=== PATIENT | male | born 1950 | race Two or more races ===

== ENCOUNTER 2016-10-16 09:59 | Emergency (ER) | payer OTHER, MEDICAID ==
[~2016-10-16] VITALS: Ht 172.7 cm; Wt 113.9 kg
[~2016-10-16 09:59] MED LIST: CLOP75TA28; COLCRYS 0.6 MG; DOXA4TAB40; ENAL-3; FURO40TA4; GEMF600T3; INSUINJ37; NITR0.2D12; OLOPATADINE; PIOG30TA7; PRAVASTATIN; TRAV0.00
[2016-10-16 10:53] LABS: Basophils # (auto) 0 uL; Basophils % (auto) 0.5 % (0.0-2.0); Eosinophils # (auto) 0.2 uL; Eosinophils % (auto) 5.7 % (0.0-7.0); Hematocrit 32.6 % (41.0-53.0); Hemoglobin 10.4 g/dL (13.5-17.5); Lymphocytes # (auto) 0.8 uL; Lymphocytes % (auto) 29.2 % (10.0-50.0); Mean Corpuscular Hemoglobin 31.1 pg (28.0-32.0); Mean Corpuscular Volume 97.1 fL (80.0-100.0); Mean Platelet Volume 8.2 fL (7.4-10.4); Monocytes # (auto) 0.3 uL; Monocytes % (auto) 10.9 % (0.0-12.0); Neutrophils # (auto) 1.6 uL; Neutrophils % (auto) 53.7 % (37.0-80.0); Platelet Count (auto) 170 10^3/uL (140-450); Red Cell Distribution Width 14.9 % (11.6-16.0); White Blood Cell 2.9 10^3/uL (4.4-10.8)
[2016-10-16 11:17] LABS: Albumin 3.4 g/dL (3.4-5.0); BUN/Creatinine Ratio 7.3; Bilirubin, Total 0.3 mg/dL (0.2-1.0); Calcium 8.3 mg/dL (8.5-10.1); Total Protein 7.5 g/dL (6.4-8.2)
[2016-10-16 19:30] VITALS: BP 103/65
== END 2016-10-16 20:35 | disposition left against medical advice (07) ==
LOC: ER 10:05
DX: T82.9XXA Unspecified complication of cardiac and vascular prosthetic device, implant and graft, initial encounter (principal); S40.022A Contusion of left upper arm, initial encounter; E11.22 Type 2 diabetes mellitus with diabetic chronic kidney disease; I12.0 Hypertensive chronic kidney disease with stage 5 chronic kidney disease or end stage renal disease; N18.6 End stage renal disease; Z99.2 Dependence on renal dialysis; E78.5 Hyperlipidemia, unspecified; Z79.899 Other long term (current) drug therapy; X58.XXXA Exposure to other specified factors, initial encounter; Y93.89 Activity, other specified; Y99.8 Other external cause status; Y92.89 Other specified places as the place of occurrence of the external cause
CPT/HCPCS: 36415; 80053; 85025

== ENCOUNTER → 2016-10-29 | Outpatient (CLI) | payer OTHER, MEDICAID | END | disposition home or self-care (01) | LOC: HDHVI->DVH 08:06 | PROVIDERS: ATTEND Internal Medicine Cardiovascular Disease | DX: I51.7 Cardiomegaly (principal); E11.9 Type 2 diabetes mellitus without complications | CPT/HCPCS: 93306 ==

== ENCOUNTER → 2016-10-30 | Outpatient (CLI) | payer OTHER, MEDICAID ==
[~2016-10-30] VITALS: Ht 172.7 cm; Wt 113.4 kg
[~2016-10-30] MED LIST changes: +ADENOSINE IV STA; +GIVE UN DILUTED IV STA
== END | disposition home or self-care (01) ==
LOC: HDHVI->DVH 13:51
PROVIDERS: ATTEND Internal Medicine Cardiovascular Disease
DX: R07.9 Chest pain, unspecified (principal); I10 Essential (primary) hypertension; E11.9 Type 2 diabetes mellitus without complications; E78.00 Pure hypercholesterolemia, unspecified
CPT/HCPCS: 78452; 93005; 96374; 96375; A9500; J0153

== ENCOUNTER → 2017-10-27 | Outpatient (CLI) | payer OTHER, MEDICAID ==
[~2017-10-27] MED LIST changes: -ADENOSINE IV STA; -GIVE UN DILUTED IV STA; -PIOG30TA7; +PIOG30TA8
== END | disposition home or self-care (01) ==
LOC: Rad HDHVI 08:41
PROVIDERS: ATTEND Internal Medicine Cardiovascular Disease
DX: I36.1 Nonrheumatic tricuspid (valve) insufficiency (principal); I25.5 Ischemic cardiomyopathy
CPT/HCPCS: 93306

== ENCOUNTER → 2018-05-17 | Outpatient (CLI) | payer OTHER, MEDICAID ==
[~2018-05-17] MED LIST changes: +AMLO5TAB13 PO; +ASPI81CH43 PO; -CLOP75TA28; +CLOP75TA28 PO; -COLCRYS 0.6 MG; +COLCRYS 0.6 MG PO; +DOCU-80 PO; -DOXA4TAB40; +DOXA4TAB40 PO; -FURO40TA4; +FURO40TA4 PO; -GEMF600T3; +GEMF600T7 PO; +INSUINJ18 SC; -INSUINJ37; +INSUINJ37 SC; +LORA-154 PO; +MAGN400T5 PO; +MULT-647 PO; -NITR0.2D12; +NITR0.2D12 TOP; +PAR20T PO; -PIOG30TA8; +PIOG30TA8 PO; +SEVE800T8 PO
[2018-05-17 14:00] VITALS: BP 162/90
[2018-05-17 14:45] VITALS: BP 160/90
[2018-05-17 16:56] LABS: Basophils # (auto) 0 uL; Basophils % (auto) 0.6 % (0.0-2.0); Eosinophils # (auto) 0.1 uL; Hematocrit 31.6 % (41.0-53.0); Hemoglobin 10.6 g/dL (13.5-17.5); Lymphocytes # (auto) 0.6 uL; Lymphocytes % (auto) 23.3 % (10.0-50.0); Mean Corpuscular Hemoglobin 32.9 pg (28.0-32.0); Mean Corpuscular Hgb Conc. 33.6 g/dL (32.0-36.0); Mean Corpuscular Volume 98.1 fL (80.0-100.0); Monocytes # (auto) 0.3 uL; Monocytes % (auto) 10.5 % (0.0-12.0); Neutrophils # (auto) 1.6 uL; Neutrophils % (auto) 60.6 % (37.0-80.0); Nucleated Red Blood Cells % 0.1 %; Platelet Count (auto) 178 10^3/uL (140-450); Red Blood Cells 3.22 10^6/uL (4.5-5.90); Red Cell Distribution Width 17.9 % (11.8-14.3); White Blood Cell 2.6 10^3/uL (4.4-10.8)
[2018-05-17 17:05] LABS: BUN/Creatinine Ratio 3.7; Partial Thromboplastin Time 26.4 sec (23.78-33.04); Potassium 3.5 mmol/L (3.5-5.1); Prothrombin Time 10.7 sec (9.27-12.13)
== END | disposition home or self-care (01) ==
LOC: Rad HDHVI 14:02
PROVIDERS: ATTEND Internal Medicine Cardiovascular Disease
DX: Z01.818 Encounter for other preprocedural examination (principal); I10 Essential (primary) hypertension; D64.9 Anemia, unspecified; R79.1 Abnormal coagulation profile; R94.31 Abnormal electrocardiogram [ECG] [EKG]; E11.9 Type 2 diabetes mellitus without complications; Z79.899 Other long term (current) drug therapy
CPT/HCPCS: 36415; 71046; 80048; 85025; 85610; 85730; 93005; G0463

== ENCOUNTER → 2019-08-08 | Outpatient (CLI) | payer MEDICAID, MEDICARE ==
[~2019-08-08] MED LIST changes: -AMLO5TAB13 PO; +AMLO5TAB15 PO; -DOXA4TAB40 PO; +DOXA4TAB5 PO; -ENAL-3; +LORazepam 2MG/ML-1ML VIAL IV ONE; +LORazepam 2MG/ML-1ML VIAL ONE; -NITR0.2D12 TOP; +NITR0.2D3 TOP; -OLOPATADINE; +PIOG30TA20 PO; -PIOG30TA8 PO; -PRAVASTATIN
[2019-08-08 11:40] VITALS: BP 156/76
--- NOTE | 2019-08-08 11:40 | NUR ---
Discharge Instructions See e-MAR for any mediations given with this visit. Patient education given on disease process. Patient verbalized understanding. Previous labs reviewed. Patient discharged in stable condition with after care instructions and follow up appointment. PT SEVERELY CLAUSTROPHOBIC, MD HERNANDEZ UPDATE ORDERS RECEIVED AND NOTED FOR ATIVAN . PT GIVEN ATIVAN 0.5MG IVP./ TOLERATED WELL O DISTRESS PT DAUGHTER PICKED HIM UP
[2019-08-08 12:28] VITALS: BP 151/69
== END | disposition home or self-care (01) ==
LOC: Rad HDHVI 11:19
PROVIDERS: ATTEND Internal Medicine Cardiovascular Disease
DX: M50.323 Other cervical disc degeneration at C6-C7 level (principal); E11.22 Type 2 diabetes mellitus with diabetic chronic kidney disease; I12.9 Hypertensive chronic kidney disease with stage 1 through stage 4 chronic kidney disease, or unspecified chronic kidney disease; N18.9 Chronic kidney disease, unspecified; M25.78 Osteophyte, vertebrae; M12.88 Other specific arthropathies, not elsewhere classified, other specified site
CPT/HCPCS: 72125; 96374; G0463; J2060

== ENCOUNTER 2020-01-17 14:15 | Inpatient (IN) | payer MEDICARE, MEDICAID ==
[~2020-01-17] VITALS: Ht 172.7 cm; Wt 101.6 kg
[~2020-01-17 14:15] MED LIST changes: -LORazepam 2MG/ML-1ML VIAL IV ONE; -LORazepam 2MG/ML-1ML VIAL ONE; +MAGN400T40 PO; -MAGN400T5 PO
[2020-01-17 14:54] LABS: Mean Corpuscular Hemoglobin 31.9 pg (28.0-32.0); Mean Corpuscular Hgb Conc. 31.9 g/dL (32.0-36.0); Platelet Count (auto) 121 10^3/uL (140-450); White Blood Cell 2.9 10^3/uL (4.4-10.8)
[2020-01-17 14:56] LABS: Hematocrit 19.3 % (41.0-53.0); Red Blood Cells 1.93 10^6/uL (4.5-5.90)
[2020-01-17 14:58] LABS: Red Cell Distribution Width 23.7 % (11.8-14.3)
[2020-01-17 15:02] LABS: Hemoglobin 6.2 g/dL (13.5-17.5)
[2020-01-17 15:04] LABS: Basophils % (manual) 0 (0.0-2.0); Blast Cells 0; Metamyelocytes % 0; Myelocytes % 0; Promyelocytes % 0
[2020-01-17] MEDS ORDERED: SODIUM CHLORIDE 0.9% 1,000 ML IV SCH (15:07)
[2020-01-17 15:11] LABS: Albumin 2.7 g/dL (3.4-5.0); Potassium 4.7 mmol/L (3.5-5.1)
[2020-01-17 15:15] LABS: BUN/Creatinine Ratio 4.6; Bilirubin, Total 0.5 mg/dL (0.2-1.0); Total Protein 6.7 g/dL (6.4-8.2)
[2020-01-17] MEDS ORDERED: HYDROcodone-ACET 5/325MG TAB PO PRN (15:15)
[2020-01-17] MEDS ORDERED: NITROGLYCERIN 0.4 MG SL TAB SL PRN (15:15)
[2020-01-17] MEDS ORDERED: MORPHINE SULF INJ 2 MG/ML SYRINGE 1ML IV PRN ×2 (15:15)
[2020-01-17] MEDS ORDERED: DOCUSATE SOD 100 MG CAP PO PRN (15:15)
[2020-01-17] MEDS ORDERED: LORazepam 0.5 MG TAB PO PRN (15:15)
[2020-01-17] MEDS ORDERED: ALUM & MAG HYDROX-SIMETH LIQ(MAALOX) 30 ML PO PRN (15:15)
[2020-01-17] MEDS ORDERED: ONDANSETRON HCL 4 MG/2 ML VIAL IV PRN (15:15)
[2020-01-17 15:37] LABS: Cholesterol 109 mg/dL (< 200)
[2020-01-17 15:40] LABS: HDL Cholesterol 30 mg/dL (40-59); LDL Cholesterol 62 mg/dL (< 100); Triglycerides 108 mg/dL (< 150)
[2020-01-17] MEDS ORDERED: FUROSEMIDE 40 MG/4 ML VIAL IV ONE (16:00)
[2020-01-17 16:12] LABS: Band Neutrophils % (manual) 7; Eosinophils % (manual) 1 (0-7); Lymphocytes % (manual) 30 (10.0-50.0); Monocytes % (manual) 9 (0-12); Reactive Lymphocytes 1
[2020-01-17] MEDS ORDERED: VANCOMYCIN PER PHARMACY 0 MG IV SCH (16:30)
[2020-01-17] MEDS ORDERED: VANCOMYCIN 1GM/250ML 250 ML IV ONE (17:00)
[2020-01-17] MEDS ORDERED: DEXTROSE (50%) 50ML SYRG IV PRN (17:15)
[2020-01-17 17:30] VITALS: BP 148/71
[2020-01-17] MEDS: FUROSEMIDE 40 MG/4 ML VIAL IV SCH (17:58)
[2020-01-17] MEDS: InsuLIN REG 1unit/0.01ml Soln (100units/ml) SC SCH (21:37)
[2020-01-17] MEDS: ACCU-CHEK COMFORT CURVE STRIP VI SCH (21:37)
[2020-01-17] MEDS: GEMFIBROZIL 600 MG TAB PO SCH (21:38)
[2020-01-17] MEDS ORDERED: INSULIN LANTUS (GLARGINE) 1 /0.01ml (100units/ml) SC SCH (22:00)
[2020-01-17 22:17] LABS: Urine Bacteria NONE SEEN /hpf (None Seen); Urine Blood Negative /uL (Negative); Urine Specific Gravity 1.007 (1.001-1.035); Urine WBC 1 /hpf (0 - 3)
[2020-01-17 22:29] LABS: Alcohol, Urine < 3.0 mg/dL (0-5); Amphetamine Screen, Urine NEGATIVE (NEGATIVE); Barbiturate Scree,Urine NEGATIVE (NEGATIVE); Benzodiazephine Screen, Urine NEGATIVE (NEGATIVE); Cannabinoid Screen, Urine NEGATIVE (NEGATIVE); Cocaine Screen, Urine NEGATIVE (NEGATIVE); Opiate Scree,Urine NEGATIVE (NEGATIVE); Phencyclidine Screen, Urine NEGATIVE (NEGATIVE)
[2020-01-18] VITALS (12 sets, daily range): BP systolic 141–160; BP diastolic 63–83
[2020-01-18] MEDS: FUROSEMIDE 40 MG/4 ML VIAL IV SCH (06:39)
[2020-01-18] MEDS: InsuLIN REG 1unit/0.01ml Soln (100units/ml) SC SCH ×2 (06:39→11:26)
[2020-01-18] MEDS: ACCU-CHEK COMFORT CURVE STRIP VI SCH ×2 (06:39→11:26)
[2020-01-18] MEDS: INSULIN LISPRO (HUMAN) 100 UNITS/ML ML SC SCH ×2 (06:39→11:25)
[2020-01-18] MEDS: SEVELAMER 800 MG TAB PO SCH ×2 (08:15→12:00)
[2020-01-18] MEDS: GEMFIBROZIL 600 MG TAB PO SCH (09:37)
[2020-01-18] MEDS ORDERED: ASPirin 81 mg TAB PO SCH (10:00)
[2020-01-18] MEDS ORDERED: LORATADINE 10 MG TAB PO SCH (10:00)
[2020-01-18] MEDS ORDERED: amLODIPine BESYLATE 5 MG TAB PO SCH (10:00)
[2020-01-18] MEDS ORDERED: MULTIPLE VITAMINS W/ MINERALS TAB PO SCH (10:00)
[2020-01-18] MEDS ORDERED: CLOPIDOGREL BISULFATE 75 MG TAB PO SCH (10:00)
[2020-01-18] MEDS ORDERED: NITROGLYCERIN 0.2MG/HR TOPICAL PATCH TD PRN (10:00)
[2020-01-18] MEDS ORDERED: PARoxetine 20 MG TAB PO SCH (10:00)
[2020-01-18] MEDS ORDERED: SODIUM CHL 0.9% 1000 ML BAG XX ONE (10:15)
[2020-01-18 11:03] LABS: BUN/Creatinine Ratio 5.9; Calcium 6.7 mg/dL (8.5-10.1); Potassium 4.9 mmol/L (3.5-5.1)
[2020-01-18 11:04] LABS: Hematocrit 19.8 % (41.0-53.0); Mean Corpuscular Hgb Conc. 31.3 g/dL (32.0-36.0); Mean Corpuscular Volume 102.2 fL (80.0-100.0); Platelet Count (auto) 119 10^3/uL (140-450); Red Blood Cells 1.94 10^6/uL (4.5-5.90); White Blood Cell 2.8 10^3/uL (4.4-10.8)
[2020-01-18 11:05] LABS: Hemoglobin 6.2 g/dL (13.5-17.5)
[2020-01-18 11:06] LABS: Band Neutrophils % (manual) 0; Blast Cells 0; Myelocytes % 0; Promyelocytes % 0; Reactive Lymphocytes 0
[2020-01-18 11:16] LABS: Basophils % (manual) 1 (0.0-2.0); Eosinophils % (manual) 3 (0-7); Lymphocytes % (manual) 30 (10.0-50.0); Metamyelocytes % 2; Monocytes % (manual) 8 (0-12)
[2020-01-18] MEDS ORDERED: SEVELAMER 800 MG TAB PO SCH (12:00)
[2020-01-18] MEDS ORDERED: CLOT1CRE13 TOP (14:17)
[2020-01-18] MEDS ORDERED: COLC0.6T56 PO (14:17)
[2020-01-18] MEDS ORDERED: ENAL10TA PO (14:17)
[2020-01-18] MEDS ORDERED: ROPI0.254 PO (14:17)
[2020-01-18 14:59] LABS: Hematocrit 25.8 % (41.0-53.0); Hemoglobin 8.5 g/dL (13.5-17.5)
[2020-01-18] MEDS ORDERED: EPOETIN ALFA 10,000 UNIT/1 ML VIAL SC ONE (21:00)
[2020-01-19] MEDS ORDERED: GEMFIBROZIL 600 MG TAB PO SCH (10:00)
== END 2020-01-18 17:00 | disposition home or self-care (01) | DRG 682 ==
LOC: ER 14:15 → TELE 14:16 → TELE-WESTW 17:12
PROVIDERS: ADMIT Hospitalist; ATTEND Family Medicine
PROC: 30233N1 Transfusion of Nonautologous Red Blood Cells into Peripheral Vein, Percutaneous Approach (ICD-10-PCS; principal; 2020-01-18)
PROC: 5A1D70Z Performance of Urinary Filtration, Intermittent, Less than 6 Hours Per Day (ICD-10-PCS; 2020-01-18)
DX: I12.0 Hypertensive chronic kidney disease with stage 5 chronic kidney disease or end stage renal disease (principal); N18.6 End stage renal disease; N25.81 Secondary hyperparathyroidism of renal origin; E44.0 Moderate protein-calorie malnutrition; I16.1 Hypertensive emergency; E11.22 Type 2 diabetes mellitus with diabetic chronic kidney disease; E78.5 Hyperlipidemia, unspecified; D63.1 Anemia in chronic kidney disease; E66.9 Obesity, unspecified; G47.33 Obstructive sleep apnea (adult) (pediatric); F32.9 Major depressive disorder, single episode, unspecified; E78.00 Pure hypercholesterolemia, unspecified; Z79.899 Other long term (current) drug therapy; Z79.82 Long term (current) use of aspirin; Z79.4 Long term (current) use of insulin; Z99.2 Dependence on renal dialysis; Z82.49 Family history of ischemic heart disease and other diseases of the circulatory system; Z79.02 Long term (current) use of antithrombotics/antiplatelets; Z79.84 Long term (current) use of oral hypoglycemic drugs; Z95.1 Presence of aortocoronary bypass graft; Z68.34 Body mass index [BMI] 34.0-34.9, adult
CPT/HCPCS: 36415; 71046; 80048; 80053; 80061; 80202; 80307; 81001; 82962; 83036; 83880; 84484; 85007; 85014; 85018; 85027; 86850; 86900; 86901; 86920; 87040; 90935; 99291; G0378; J0885; J1642

== ENCOUNTER 2020-03-07 20:25 | Inpatient (IN) | payer MEDICARE, MEDICAID ==
[~2020-03-07] VITALS: Ht 172.7 cm; Wt 96.4 kg
[~2020-03-07 20:25] MED LIST changes: +CLOT1CRE13 TOP; +COLC0.6T56 PO; -COLCRYS 0.6 MG PO; +ENAL10TA PO; +ROPI0.254 PO
[2020-03-07] MEDS ORDERED: ACETAMINOPHEN 325 MG TAB PO ONE (21:30)
[2020-03-07 23:36] LABS: Hematocrit 31.7 % (41.0-53.0); Hemoglobin 10.5 g/dL (13.5-17.5); Mean Corpuscular Hemoglobin 30.9 pg (28.0-32.0); Mean Corpuscular Volume 93.4 fL (80.0-100.0); Platelet Count (auto) 82 10^3/uL (140-450); Red Cell Distribution Width 17.6 % (11.8-14.3); White Blood Cell 6.3 10^3/uL (4.4-10.8)
[2020-03-07 23:40] LABS: Basophils % (manual) 0 (0.0-2.0); Blast Cells 0; Eosinophils % (manual) 0 (0-7); Metamyelocytes % 0; Myelocytes % 0; Promyelocytes % 0; Reactive Lymphocytes 0
[2020-03-07 23:53] LABS: Albumin 2.6 g/dL (3.4-5.0); Anion Gap 14 (5-15); Blood Urea Nitrogen 17 mg/dL (7-18); Calcium 8.3 mg/dL (8.5-10.1); Carbon Dioxide 26 mmol/L (21-32); Chloride 96 mmol/L (98-107); Glucose 87 mg/dL (74-106); Potassium 3.6 mmol/L (3.5-5.1); Sodium 136 mmol/L (136-145)
[2020-03-08] LABS: Alanine Aminotransferase 87 U/L (16-61); Alkaline Phosphatase 528 U/L (45-117); Aspartate Aminotransferase 282 U/L (15-37); BUN/Creatinine Ratio 3.5; Bilirubin, Total 2.5 mg/dL (0.2-1.0); GFR African American 16 mL/min; GFR Non-African American 13 mL/min; Total Protein 7.7 g/dL (6.4-8.2)
[2020-03-08 00:02] LABS: CRP High Sensitivity > 19.0 mg/dL (< 0.3)
[2020-03-08 00:05] LABS: INR 1.52 (0.9-1.15); Partial Thromboplastin Time 38.8 sec (23.64-32.05)
[2020-03-08] MEDS ORDERED: NITROGLYCERIN 0.4MG/HR TOPICAL PATCH TD ONE (02:30)
[2020-03-08] MEDS ORDERED: ACETAMINOPHEN 325 MG TAB PO PRN (05:45)
[2020-03-08] MEDS ORDERED: ENOXAPARIN SOD 100 MG/1 ML SYRINGE SC ONE (05:45)
[2020-03-08] MEDS ORDERED: NITROGLYCERIN 0.4 MG SL TAB SL PRN (05:45)
[2020-03-08] MEDS ORDERED: FUROSEMIDE 40 MG/4 ML VIAL IV ONE (05:45)
[2020-03-08] MEDS ORDERED: TEMAZEPAM 15 MG CAP PO PRN (05:45)
[2020-03-08] MEDS ORDERED: ONDANSETRON HCL 4 MG/2 ML VIAL IV PRN (05:45)
[2020-03-08] MEDS ORDERED: MORPHINE SULF INJ 2 MG/ML SYRINGE 1ML IV PRN (05:45)
[2020-03-08 07:09] LABS: Band Neutrophils % (manual) 6; Lymphocytes % (manual) 17 (10.0-50.0); Monocytes % (manual) 7 (0-12)
[2020-03-08] MEDS ORDERED: NITROGLYCERIN 50MG/250ML 250 ML IV SCH ×2 (09:00→12:00)
[2020-03-08] MEDS ORDERED: IOHEXOL 350 MG/ML 100ML IJ ONE (09:18)
[2020-03-08] MEDS ORDERED: amLODIPine BESYLATE 5 MG TAB PO SCH (10:00)
[2020-03-08] MEDS: ASPirin 81 mg TAB PO SCH (10:16)
[2020-03-08] MEDS: SEVELAMER 800 MG TAB PO SCH ×3 (10:16→22:20)
[2020-03-08] MEDS: PANTOPRAZOLE 40 MG TAB PO SCH (10:16)
[2020-03-08] MEDS: GEMFIBROZIL 600 MG TAB PO SCH ×2 (10:16→23:09)
[2020-03-08] MEDS: CLOPIDOGREL BISULFATE 75 MG TAB PO SCH (10:16)
[2020-03-08] MEDS: ENALAPRIL MALEATE 10 MG TAB PO SCH (11:29)
[2020-03-08 12:56] LABS: Urine Bacteria FEW /hpf (None Seen); Urine Blood TRACE /uL (Negative); Urine Specific Gravity 1.017 (1.001-1.035); Urine WBC 1 /hpf (0 - 3)
[2020-03-08] MEDS ORDERED: DIGOXIN (250MCG/ML) 2 ML AMPULE IV ONE (14:15)
[2020-03-08] MEDS ORDERED: DEXTROSE (50%) 50ML SYRG IV PRN (15:15)
[2020-03-08] MEDS: InsuLIN REG 1unit/0.01ml Soln (100units/ml) SC SCH ×2 (17:30→22:00)
[2020-03-08 17:43] LABS: BUN/Creatinine Ratio 4.6; Calcium 8.4 mg/dL (8.5-10.1); Potassium 4.1 mmol/L (3.5-5.1)
[2020-03-08] MEDS: FUROSEMIDE 20 MG/2 ML VIAL IV SCH (19:28)
[2020-03-08 22:30] VITALS: BP 121/60
[2020-03-08] MEDS: ACCU-CHEK COMFORT CURVE STRIP VI SCH ×2 (22:48→23:09)
[2020-03-08 23:12] VITALS: BP 121/60
[2020-03-09 05:00] VITALS: BP 125/58
[2020-03-09] MEDS: InsuLIN REG 1unit/0.01ml Soln (100units/ml) SC SCH ×4 (05:07→22:00)
[2020-03-09] MEDS: FUROSEMIDE 20 MG/2 ML VIAL IV SCH ×2 (05:08→17:10)
[2020-03-09 05:27] LABS: Hemoglobin 9.2 g/dL (13.5-17.5); Mean Corpuscular Hgb Conc. 32.8 g/dL (32.0-36.0)
[2020-03-09 05:28] LABS: Hematocrit 27.9 % (41.0-53.0); Mean Corpuscular Volume 94.3 fL (80.0-100.0); Platelet Count (auto) 47 10^3/uL (140-450); Red Blood Cells 2.96 10^6/uL (4.5-5.90); Red Cell Distribution Width 18.2 % (11.8-14.3); White Blood Cell 7.1 10^3/uL (4.4-10.8)
[2020-03-09 05:41] LABS: INR 1.63 (0.9-1.15); Partial Thromboplastin Time 47.6 sec (23.64-32.05)
[2020-03-09] MEDS: ACCU-CHEK COMFORT CURVE STRIP VI SCH ×4 (05:43→22:51)
[2020-03-09 05:44] LABS: Basophils % (manual) 0 (0.0-2.0); Blast Cells 0; Myelocytes % 0; Promyelocytes % 0; Reactive Lymphocytes 0
[2020-03-09 05:48] LABS: Potassium 4.4 mmol/L (3.5-5.1)
[2020-03-09 06:01] LABS: Albumin 2.3 g/dL (3.4-5.0); BUN/Creatinine Ratio 5.6; Bilirubin, Total 3.9 mg/dL (0.2-1.0); Calcium 9.5 mg/dL (8.5-10.1); Total Protein 6.9 g/dL (6.4-8.2)
[2020-03-09 06:02] LABS: % Iron Saturation 70.3 % (20-55)
[2020-03-09] MEDS ORDERED: SODIUM CHLORIDE 0.9% 1,000 ML IV SCH (06:15)
[2020-03-09 06:53] LABS: Band Neutrophils % (manual) 5; Eosinophils % (manual) 1 (0-7); Lymphocytes % (manual) 19 (10.0-50.0); Metamyelocytes % 1; Monocytes % (manual) 16 (0-12)
[2020-03-09] MEDS ORDERED: SODIUM CHL 0.9% 1000 ML BAG XX ONE (07:00)
[2020-03-09] MEDS: SEVELAMER 800 MG TAB PO SCH ×3 (08:00→17:10)
[2020-03-09 09:00] VITALS: BP 116/55
[2020-03-09] MEDS ORDERED: levoFLOXacin 500MG 100 ML IV SCH (09:30)
[2020-03-09] MEDS ORDERED: D5W/SOD CHLO 0.9% 1,000 ML IV SCH ×3 (09:30→22:45)
[2020-03-09] MEDS ORDERED: VANCOMYCIN PER PHARMACY 0 MG IV SCH (09:30)
[2020-03-09] MEDS ORDERED: ENOXAPARIN SOD 150 MG/1 ML SYRINGE SC SCH (10:00)
[2020-03-09] MEDS: ENALAPRIL MALEATE 10 MG TAB PO SCH (10:00)
[2020-03-09] MEDS: GEMFIBROZIL 600 MG TAB PO SCH ×2 (10:00→22:50)
[2020-03-09] MEDS: PANTOPRAZOLE 40 MG TAB PO SCH (10:00)
[2020-03-09] MEDS: CLOPIDOGREL BISULFATE 75 MG TAB PO SCH (10:38)
[2020-03-09] MEDS: ASPirin 81 mg TAB PO SCH (10:39)
[2020-03-09] MEDS ORDERED: IODIXANOL 320MG/ML 100ML BTL IV ONE (12:59)
[2020-03-09] MEDS ORDERED: LIDOCAINE 2%HCL (LOCAL ANESTH.) INJ 20ML MDV ONE (12:59)
[2020-03-09] MEDS ORDERED: VANCOMYCIN 1GM/250ML 250 ML IV ONE ×2 (13:00→20:00)
[2020-03-09] MEDS ORDERED: ANGIOMAX 250 MG VIAL IV ONE (13:06)
[2020-03-09] MEDS ORDERED: MIDAZOLAM HCL 1MG/1ML-2 ML VIAL ONE (13:06)
[2020-03-09] MEDS ORDERED: SODIUM CHL 0.9% 0 ML ONE (13:06)
[2020-03-09] MEDS ORDERED: fentaNYL CITRATE 100 MCG/2 ML VL ONE (13:06)
[2020-03-09 17:00] VITALS: BP 115/54
[2020-03-09] MEDS ORDERED: EPOETIN ALFA 10,000 UNIT/1 ML VIAL SC ONE (21:00)
[2020-03-09 22:00] VITALS: BP 139/68
[2020-03-09] MEDS ORDERED: SODIUM CHLOR 0.9% PF (SALINE LOCK) 10ML VIAL/SYR IV SCH (22:00)
[2020-03-09] MEDS ORDERED: METOPROLOL TARTRATE 1MG/1ML-5ML VIAL IV SCH (23:45)
[2020-03-10] VITALS: BP 91/73
[2020-03-10 01:00] VITALS: BP 84/38
[2020-03-10 02:00] VITALS: BP 98/45
[2020-03-10 03:00] VITALS: BP 105/55
[2020-03-10 03:45] VITALS: BP 112/43
[2020-03-10] MEDS ORDERED: DEXTROSE 10% 1,000 ML IV SCH (03:45)
[2020-03-10] MEDS ORDERED: PROPOFOL 100 ML IV SCH (03:47)
[2020-03-10] MEDS ORDERED: MIDAZOLAM DRIP 50 mg/50mL 50 ML IV SCH (03:47)
[2020-03-10] MEDS ORDERED: EPINEPHrine HCL 1 MG/10 ML SYRG IV ONE (10:05)
[2020-03-10] MEDS ORDERED: DEXTROSE (50%) 50ML SYRG IV ONE (10:05)
[2020-03-12 12:56] LABS: Hepatitis A Ab IgM Negative; Hepatitis B Core IgM Negative; Hepatitis B Surface Antigen Negative (Negative)
[2020-03-12 12:57] LABS: Hepatitis C Antibody Negative (Negative)
== END 2020-03-10 04:10 | disposition expired ==
LOC: ER 20:28 → TELE 20:29 → TELE-EAST 03-08 22:20 → TELE-WESTW 03-09 00:20
PROVIDERS: ADMIT Nurse Practitioner; ATTEND Internal Medicine
PROC: 5A1D70Z Performance of Urinary Filtration, Intermittent, Less than 6 Hours Per Day (ICD-10-PCS; 2020-03-07)
PROC: 4A023N7 Measurement of Cardiac Sampling and Pressure, Left Heart, Percutaneous Approach (ICD-10-PCS; principal; 2020-03-09)
PROC: B211YZZ Fluoroscopy of Multiple Coronary Arteries using Other Contrast (ICD-10-PCS; 2020-03-09)
PROC: B215YZZ Fluoroscopy of Left Heart using Other Contrast (ICD-10-PCS; 2020-03-09)
PROC: 5A12012 Performance of Cardiac Output, Single, Manual (ICD-10-PCS; 2020-03-10)
PROC: 0CHY7BZ Insertion of Airway into Mouth and Throat, Via Natural or Artificial Opening (ICD-10-PCS; 2020-03-10)
DX: I21.4 Non-ST elevation (NSTEMI) myocardial infarction (principal); I50.33 Acute on chronic diastolic (congestive) heart failure; J96.00 Acute respiratory failure, unspecified whether with hypoxia or hypercapnia; N18.6 End stage renal disease; R65.11 Systemic inflammatory response syndrome (SIRS) of non-infectious origin with acute organ dysfunction; E43 Unspecified severe protein-calorie malnutrition; G93.41 Metabolic encephalopathy; J15.0 Pneumonia due to Klebsiella pneumoniae; J90 Pleural effusion, not elsewhere classified; I13.2 Hypertensive heart and chronic kidney disease with heart failure and with stage 5 chronic kidney disease, or end stage renal disease; Z68.41 Body mass index [BMI] 40.0-44.9, adult; E66.01 Morbid (severe) obesity due to excess calories; D69.6 Thrombocytopenia, unspecified; D63.1 Anemia in chronic kidney disease; E11.22 Type 2 diabetes mellitus with diabetic chronic kidney disease; E78.5 Hyperlipidemia, unspecified; I46.9 Cardiac arrest, cause unspecified; Z20.828 Contact with and (suspected) exposure to other viral communicable diseases; I50.82 Biventricular heart failure; D63.8 Anemia in other chronic diseases classified elsewhere; G47.33 Obstructive sleep apnea (adult) (pediatric); E11.649 Type 2 diabetes mellitus with hypoglycemia without coma; I27.21 Secondary pulmonary arterial hypertension; N28.89 Other specified disorders of kidney and ureter; E11.319 Type 2 diabetes mellitus with unspecified diabetic retinopathy without macular edema; E11.21 Type 2 diabetes mellitus with diabetic nephropathy; Z99.2 Dependence on renal dialysis; Z79.4 Long term (current) use of insulin; Z82.49 Family history of ischemic heart disease and other diseases of the circulatory system
CPT/HCPCS: 36415; 36600; 71045; 71275; 80048; 80053; 80074; 81001; 82728; 82805; 82962; 83540; 83550; 83880; 84484; 85007; 85027; 85379; 85610; 85730; 86141; 87040; 87070; 87077; 87186; 87205; 90935; 92950; 93005; 93306; 93458; 94002; 96365; 96366; 96372; 96375; 99152; G0378; J0885; J2250; J2704; J7042; Q9967